=== PATIENT | male | born 1990 | race Caucasian/White ===

== ENCOUNTER → 2016-12-29 | Outpatient (CLI) | payer BC ==
[2016-12-29 10:14] LABS: BASO % 0.6 %; BASO ABS # 0.04 K/uL (0-0.2); COMPLETE YES; EOS % 3.3 %; HEMATOCRIT 47.2 % (42-52); IG% 0.1 %; LYMPH % 39.2 %; LYMPH ABS # 2.75 K/uL (1.2-3.4); MEAN CELL VOLUME 87.9 fL (80-100); MEAN CORPUSCULAR HEMOGLOBIN 30.5 pg (25-34); MEAN CORPUSCULAR HGB CONC 34.7 g/dl (32-36); MEAN PLATELET VOLUME 9.4 fL (7.4-10.4); MONO % 12.5 %; NEUT % 44.3 %; PLATELET COUNT 223 K/uL (130-400); RED BLOOD COUNT 5.37 M/uL (4.7-6.1); WHITE BLOOD COUNT 7.02 K/uL (4.8-10.8)
[2016-12-29 10:25] LABS: ALT/SGPT 99 U/L (12-78); AST/SGOT 45 U/L (15-37); BLOOD UREA NITROGEN 13 mg/dl (7-18); BUN/CREATININE RATIO 12.2 (10-20); CALCIUM 9.3 mg/dl (8.5-10.1); CARBON DIOXIDE 32 mmol/L (21-32); CHLORIDE 107 mmol/L (98-107); GLUCOSE 102 mg/dl (70-99); POTASSIUM 4.2 mmol/L (3.5-5.1); SODIUM 143 mmol/L (136-145)
[2016-12-29 10:27] LABS: ALB/GLOB RATIO 1.3 (0.9-2); ALKALINE PHOSPHATASE 85 U/L (45-117); CHOLESTEROL 182 mg/dl (0-200); CHOLESTEROL/HDL RATIO 6.3; HDL CHOLESTEROL 29 mg/dl; LDL CHOLESTEROL CALCULATED 128 mg/dl; TRIGLYCERIDES 123 mg/dl (0-150); VERY LOW DENSITY LIPOPROT CALC 25 mg/dl
[2016-12-29 12:34] LABS: URINE APPEARANCE CLEAR (CLEAR); URINE BILIRUBIN NEG (NEG); URINE COLOR YELLOW; URINE NITRITE NEG (NEG); URINE PH 6.5 (4.5-7.5); URINE SPECIFIC GRAVITY 1.028 (1.000-1.030); UROBILINOGEN NEG (NEG)
[2016-12-29 12:46] LABS: MANUAL MICROSCOPIC REQUIRED? NO; REVIEW REQ? NO
== END | disposition home or self-care (01) ==
LOC: C.LAB1850 09:11
PROVIDERS: ATTEND Internal Medicine
DX: K21.9 Gastro-esophageal reflux disease without esophagitis (principal); E78.5 Hyperlipidemia, unspecified

== ENCOUNTER → 2017-01-21 | Outpatient (CLI) | payer BC ==
--- NOTE | 2017-01-21 09:35 | DIAGNOSTIC IMAGING REPORT ---
(LIVER) ABDOMEN LIMITED HISTORY: 26 years-old Male R19.7 Intermittent [id number] Elevated liver [id number] COMPARISON: None available TECHNIQUE: Multiple real-time sonographic images of the abdominal right upper quadrant were obtained assessing grayscale appearance and color flow FINDINGS: Pancreas is mostly obscured by bowel gas. The liver parenchyma is diffusely echogenic with poor through transmission measuring up to 18.2 cm. No focal hepatic mass lesions or ascites. Common bile duct is normal, 0.5 cm. Gallbladder is unremarkable without focal wall thickening, shadowing cholelithiasis or pericholecystic fluid. No reported sonographic Guzman sign. Imaged portions of the right kidney are within normal limits. IMPRESSION: 1. Fatty infiltration of the liver. 2. No sonographic evidence of cholelithiasis or acute cholecystitis. 3. No biliary ductal dilation. The above report was generated using voice recognition software. It may contain grammatical, syntax or spelling errors. Electronically signed by: Cooper Mtz M.D. 01/21/2017 9:34 AM Dictated Date/Time: 01/21/2017 9:32 AM
[2017-01-21 09:56] LABS: HEPATITIS B AB POS
[2017-01-21 10:06] LABS: FERRITIN 436.9 ng/ml (8.0-388.0)
[2017-01-25 10:53] LABS: ALPHA-1-ANTITRYPSIN TC 67710E 158 MG/DL (83-199); IGA SERUM 424 mg/dL (81-463); TIS TRANS IGA 1 U/mL (<4)
[2017-01-26 09:34] LABS: ANA TITER 1:40 TITER (<1:40)
== END | disposition home or self-care (01) ==
LOC: C.ULTR 08:04
PROVIDERS: ATTEND Registered Nurse
DX: R19.7 Diarrhea, unspecified (principal); R74.8 Abnormal levels of other serum enzymes; K76.0 Fatty (change of) liver, not elsewhere classified

== ENCOUNTER → 2017-10-27 | Outpatient (CLI) | payer OTHER ==
[2017-10-27 10:09] LABS: ALBUMIN 3.7 gm/dl (3.4-5.0); ALKALINE PHOSPHATASE 91 U/L (45-117); ALT/SGPT 77 U/L (12-78); AST/SGOT 42 U/L (15-37); BLOOD UREA NITROGEN 12 mg/dl (7-18); CALCIUM 8.8 mg/dl (8.5-10.1); CARBON DIOXIDE 31 mmol/L (21-32); CHOLESTEROL 172 mg/dl (0-200); CREATININE 1.03 mg/dl (0.60-1.40); GLUCOSE 97 mg/dl (70-99); LDL CHOLESTEROL CALCULATED 119 mg/dl; POTASSIUM 3.7 mmol/L (3.5-5.1); SODIUM 141 mmol/L (136-145); TOTAL PROTEIN 7.3 gm/dl (6.4-8.2)
== END | disposition home or self-care (01) ==
LOC: C.LAB1850 08:19
PROVIDERS: ATTEND Neuromusculoskeletal Medicine & OMM
DX: R74.8 Abnormal levels of other serum enzymes (principal); K76.0 Fatty (change of) liver, not elsewhere classified; E66.9 Obesity, unspecified